=== PATIENT | male | born 1995 | race Caucasian/White ===

== ENCOUNTER 2022-10-19 22:36 | Emergency (ER) | payer SELFPAY ==
[~2022-10-19] VITALS: Ht 177.8 cm; Wt 77.1 kg
[~2022-10-19 22:36] MED LIST: ACHD5005 PO; AGM875T PO; ALBU17AE3 IH; ALBUTEROL; AMOX500C2 PO; AZTH250C PO; CEFALEXIN; CIPRODEX; CLN.1T; CODE118S2; CONCERTA; CONSERTA; CPH250CIP; DEXT10TA9; DOXY-13 PO; DOXY100C2 PO; IBP800T PO; LISD70CA3 PO; METF-380 PO; METH4TAB PO; OMEP10CA2; ONDA4TAB8 PO; ONDAN4ODT PO; PRCD5U; PRM25T PO; PRO AIR; QUET300T; QUET50TA43 PO; TRAM50TA2 PO; VIVANCE
== END 2022-10-19 22:45 | disposition left against medical advice (07) ==
LOC: EDUNIT# 22:36 → ER 22:38
DX: R07.9 Chest pain, unspecified (principal); R42 Dizziness and giddiness; X50.1XXA Overexertion from prolonged static or awkward postures, initial encounter

== ENCOUNTER 2023-05-07 20:25 | Observation (INO) | payer SELFPAY ==
[~2023-05-07] VITALS: Ht 177.8 cm; Wt 70.5 kg
[2023-05-07 22:35] VITALS: BP 156/66
[2023-05-07] MEDS ORDERED: MELATONIN 3 MG TABLET PO PRN (23:00)
[2023-05-07] MEDS ORDERED: hydrALAZINE INJECTION 20 MG/ML VIAL IV PRN (23:00)
[2023-05-07] MEDS ORDERED: CALCIUM CARBONATE 500 MG CHEW TABLET PO PRN (23:00)
[2023-05-07] MEDS ORDERED: ONDANSETRON 4 MG ORAL DISSOLVE TABLET PO PRN (23:00)
[2023-05-07] MEDS ORDERED: ANTACID SUSPENSION 30 ML UDC PO PRN (23:00)
[2023-05-07] MEDS ORDERED: diphenhydrAMINE 25 MG TABLET PO PRN (23:00)
[2023-05-07] MEDS ORDERED: LACTULOSE SYRUP 10GM/15ML 30ML UDC PO PRN (23:00)
[2023-05-07] MEDS ORDERED: BISACODYL 10 MG SUPPOSITORY PR PRN (23:00)
[2023-05-07] MEDS ORDERED: MILK OF MAGNESIA 400 MG/5 ML 30 ML UDC PO PRN (23:00)
[2023-05-07] MEDS ORDERED: diphenhydrAMINE INJ 50 MG/ML VIAL IVP PRN (23:00)
[2023-05-07] MEDS ORDERED: ACETAMINOPHEN 325 MG TABLET PO PRN (23:00)
[2023-05-07] MEDS: NS IV 1000 ML 1,000 ML IV SCH (23:07)
[2023-05-07] MEDS: PIPERACILLIN/Tazobactam 4.5 GM in NS (IVPB) 100 ML 100 ML IV SCH (23:08)
[2023-05-07] MEDS: ENOXAPARIN 40 MG/0.4 ML SYRINGE SC SCH (23:08)
[2023-05-07] MEDS: inSUlin ASPART 1 UNIT/0.01 ML (PER UNIT) SC SCH (23:15)
[2023-05-08] VITALS (8 sets, daily range): BP systolic 108–156; BP diastolic 51–76
[2023-05-08] MEDS ORDERED: RT-ALBUTEROL SULF 2.5 MG/3 ML PRE-MIX VIAL INH PRN (02:45)
[2023-05-08 06:00] LABS: BASOPHILS % (AUTO) 0 % (0-10); EOSINOPHILS # (AUTO) 0.3 10^3/uL (0.0-0.3); EOSINOPHILS % (AUTO) 5 % (0-10); HEMATOCRIT 38 % (40-54); LYMPHOCYTES # (AUTO) 0.8 10^3/uL (1.0-4.0); LYMPHOCYTES % (AUTO) 14 % (12-44); MEAN CORPUSCULAR HEMOGLOBIN 29 pg (25-34); MEAN CORPUSCULAR HGB CONC 34 g/dL (32-36); MEAN CORPUSCULAR VOLUME 85 fL (80-99); MEAN PLATELET VOLUME 10.9 fL (9.0-12.2); MONOCYTES # (AUTO) 0.4 10^3/uL (0.0-1.0); MONOCYTES % (AUTO) 7 % (0-12); NEUTROPHILS % (AUTO) 73 % (42-75); PLATELET COUNT 172 10^3/uL (130-400); WHITE BLOOD COUNT 5.5 10^3/uL (4.3-11.0)
[2023-05-08] MEDS: PIPERACILLIN/Tazobactam 4.5 GM in NS (IVPB) 100 ML 100 ML IV SCH ×3 (06:04→22:12)
[2023-05-08] MEDS: inSUlin ASPART 1 UNIT/0.01 ML (PER UNIT) SC SCH ×4 (06:04→23:16)
[2023-05-08 06:14] LABS: ALBUMIN 3.6 GM/DL (3.2-4.5); POTASSIUM 3.8 MMOL/L (3.6-5.0)
[2023-05-08 06:15] LABS: CALCIUM 7.9 MG/DL (8.5-10.1)
[2023-05-08 06:18] LABS: BILIRUBIN,TOTAL 2.8 MG/DL (0.1-1.0)
[2023-05-08 06:20] LABS: CREATININE SERUM 0.96 MG/DL (0.60-1.30)
[2023-05-08] MEDS: HYDROmorphone INJECTION 2 MG/ML VIAL IV PRN ×5 (07:44→21:03)
[2023-05-08] MEDS: PANTOPRAZOLE INJECTION 40 MG VIAL IV SCH (08:54)
[2023-05-08] MEDS: DOCUSATE SODIUM 100 MG CAPSULE PO SCH ×2 (08:54→19:17)
[2023-05-08] MEDS: SENNOSIDES 8.6 MG TABLET PO SCH ×2 (08:55→19:17)
[2023-05-08] MEDS: NS IV 1000 ML 1,000 ML IV SCH ×2 (08:56→21:28)
--- NOTE | 2023-05-08 09:49 | Diagnostic Imaging Report ---
PROCEDURE: US Abdomen, limited. TECHNIQUE: Multiple realtime grayscale images were obtained over the abdomen in various projections. INDICATION: Diffuse abdominal pain. COMPARISON: None FINDINGS: Liver is enlarged. It measures 18.67 m in length. Hepatic parenchyma is within normal limits. No focal hepatic masses seen. Portal vein shows hepatopetal flow. No intra or extrahepatic biliary dilatation is present. The common bile duct is not dilated and measures 4 mm. There is no evidence of cholelithiasis, gallbladder wall thickening, or pericholecystic fluid. The visualized portions of the head and proximal body of the pancreas are within normal limits. The distal body and tail of the pancreas are not visualized due to overlying bowel gas. There is no ascites. The right kidney measures approximately 10.4 cm in length and has a normal appearance. The visualized portions of the IVC and aorta are normal. IMPRESSION: 1. No cholelithiasis or sonographic evidence of acute cholecystitis. 2. Hepatomegaly. Dictated by: Dictated on workstation # [id number]
[2023-05-08] MEDS: oxyCODONE IMMEDIATE RELEASE 5 MG TABLET PO PRN (09:54)
[2023-05-08] MEDS: NICOTINE 21 MG PATCH TD SCH (11:12)
--- NOTE | 2023-05-08 11:19 | History & Physical-Hospitalist ---
History of Present Illness HPI/Chief Complaint CC: Abdominal pain suspicion for gallbladder disease HPI: This is a 28yoWM clinic patient of [facility] who has a h/o pancreatitis who presented to the [facility] with abdominal pain but was suspecting gallbladder infection so IV abx was initiated and sent to [facility] for gallbladder USG and ultimately will need HIDA scan. Source: patient Exam Limitations: no limitations Date Seen 05/08/23 Time Seen by a Provider: 11:00 Attending Physician Fabrice Laguerre DO PCP Admitting Physician: Lisa Rosenberg DO Attending Physician: Lisa Rosenberg DO Referring Physician Date of Admission May 07, 2023 at 22:35 Home Medications & Allergies Home Medications Reviewed patient Home Medication Reconciliation performed by pharmacy medication reconciliations certified medical technician assistant and/or nursing. Patients Allergies have been reviewed. Allergies Allergies Coded Allergies No Known Drug Allergies (Xslulrmctg28/28/11) Uncoded Allergies NKDA ( Allergy, Mild, 11/08/08) Past Hohpszj-Poooyb-Tvjfiw Hx Patient Social History Marrital Status: single Employed/Student: unemployed Tobacco Use?: No Smoking Status: Current Everyday Smoker Smokeless type used: Chew Smokeless Tobacco Frequency: Current Everyday User Substance use?: Yes Substance type: Marijuana Substance frequency: Daily Alcohol Use?: No Pt feels they are or have been: No Immunizations Up To Date Date of Influenza Vaccine: Apr 25, 2012 Seasonal Allergies Seasonal Allergies: No Current Status Advance Directives: No Communicates: Verbally Primary Language: British Is interpretation needed?: No Implanted or Applied Medical D: None Past Medical History Pancreatitis, Hepatitis Diabetes, Non-Insulin dep Bipolar, Schizophrenia, Depression Family Medical History Cancer, Diabetes Review of Systems Constitutional: see HPI Gastrointestinal: abdominal pain, nausea, vomiting Physical Exam Physical Exam Vital Signs Vital Signs - First Documented 05/07/23 05/08/23 22:35 02:38 Temp 37.1 Pulse 78 Resp 20 B/P (MAP) 156/66 (96) Pulse Ox 98 O2 Delivery Room Air FiO2 21 Capillary Refill : Height, Weight, BMI Height: 5'10" Weight: 165lbs. oz. 74.959192mc; 22.30 BMI Method:Stated General Appearance: No Apparent Distress, Chronically ill Respiratory: Lungs Clear, Normal Breath Sounds Cardiovascular: Regular Rate, Rhythm Neurologic/Psychiatric: Alert, Oriented x3 Results Results/Procedures Labs Laboratory Tests 05/08/23 05:48 Patient resulted labs reviewed. Assessment/Plan Admission Diagnosis Assessment: Acute abdominal pain Acute pancreatitis with h/o pancreatitis Gallbladder disease Plan: IV abx Pain control HIDA USG Admission Status: Observation LISA ROSENBERG DO May 08, 2023 11:19
--- NOTE | 2023-05-08 12:15 | Diagnostic Imaging Report ---
Indication: Right lower and mid abdominal pain. Time of Exam: 11:39 AM No free air is identified. Bowel gas pattern is nonobstructed. No pathologic calcifications are seen. Impression: No acute abnormality is detected. Dictated by: Dictated on workstation # [id number]
--- NOTE | 2023-05-08 12:21 | CONSULTATION REPORT ---
DATE OF SERVICE: 05/08/2023 ATTENDING PRIMARY CARE PHYSICIAN: Fabrice Laguerre DO ADMITTING PHYSICIAN: Dr. Rosenberg. HISTORY OF PRESENT ILLNESS: The patient is a 28-year-old male who presented to the Emergency Department with nausea and vomiting. He reports that he has had this before and also reports a history of what he reports as what sounds to be exocrine pancreatic insufficiency or diabetes. We are currently unsure if he has been appropriately taking medications or treating this issue. The patient states that he developed the nausea and vomiting last night, which persisted. He also has tried some clear liquids this morning, which also did cause some nausea; however, no vomiting. An abdominal x-ray was also performed, which did not show any signs of any obstruction with a significant amount of air and stool within the colon, likely consistent with constipation; however, due to his history of marijuana usage, he may have cannabinoid hyperemesis syndrome. We will treat him conservatively with IV hydration, antinausea medications as well as PPI acid reducers. PAST MEDICAL HISTORY: Diabetes, bipolar disorder, schizophrenia, depression, history of hepatitis. ALLERGIES: No known drug allergies. MEDICATIONS: None known. SOCIAL HISTORY: Positive for chewing tobacco. Positive for daily THC. He states he does not drink alcohol. FAMILY HISTORY: Noncontributory. VITAL SIGNS: Temperature 36.9, blood pressure 120/68, respirations 16, pulse 63, pulse ox 97% on room air. REVIEW OF SYSTEMS: Well-nourished male, currently in no acute distress. He is not experiencing any shortness of breath or difficulty breathing. No chest pain, palpitations, diaphoresis. No cough or sputum production. He reports a sudden onset of persistent nausea and vomiting starting last night and persisting. He reports some mild abdominal pain; however, not significant. He reports that he also does have a history of constipation, however, reports that he did have a bowel movement recently. No red blood per rectum, no dark tarry stools. No fever, chills, no recent inadvertent weight loss. All other review of systems negative. PHYSICAL EXAMINATION: CHEST: Clear. Good breath sounds bilaterally. HEART: Regular. No murmurs. EXTREMITIES: No lower extremity edema. Negative Homans sign. HEENT: No scleral icterus. No cervical lymphadenopathy. ABDOMEN: Soft, nondistended. No hernias. SKIN: Warm, dry. LABORATORY DATA: WBC 5.5, hemoglobin 13.0, hematocrit 38, platelets [ ], BUN 11, creatinine 0.96. ASSESSMENT AND PLAN: A 28-year-old male with persistent nausea and vomiting with multiple diagnoses within the differential. This may be due to uncontrolled diabetes and the development of gastroparesis. This may also be due to a gastritis and peptic ulcer disease due to his smoking history as well as a chewing tobacco. His liver function enzymes do show a slight elevation of total bilirubin, however, his other liver function enzymes are normal. He also does have a history of hepatitis. Ultrasound of the gallbladder was negative, however, there may be a component of a biliary dyskinesia, which can be worked up as an outpatient. The patient also does smoke marijuana on a daily basis and this likely represents a cannabinoid hyperemesis syndrome and we would recommend conservative therapy with slow advancement of diet as tolerated and continuation of PPI acid riveter and antinausea medications. Job ID: [id number] DocumentID: [id number] Dictated Date: 05/08/2023 11:51:38 Steel Rule Inspector Date: 05/08/2023 12:19:00 Dictated By: ANGUS BETANCOURT MD
[2023-05-08] MEDS: ONDANSETRON INJECTION 4 MG/2 ML (SDV) IV PRN (13:59)
[2023-05-08] MEDS ORDERED: METOCLOPRAMIDE INJ 10 MG/2 ML IVP PRN (18:30)
[2023-05-08] MEDS: ENOXAPARIN 40 MG/0.4 ML SYRINGE SC SCH (22:12)
[2023-05-09] MEDS ORDERED: METOCLOPRAMIDE INJ 10 MG/2 ML IVP SCH
[2023-05-09] MEDS: HYDROmorphone INJECTION 2 MG/ML VIAL IV PRN ×2 (05:20→19:29)
[2023-05-09 05:35] LABS: BASOPHILS % (AUTO) 1 % (0-10); EOSINOPHILS # (AUTO) 0.2 10^3/uL (0.0-0.3); EOSINOPHILS % (AUTO) 5 % (0-10); HEMATOCRIT 37 % (40-54); HEMOGLOBIN 12.6 g/dL (13.3-17.7); LYMPHOCYTES # (AUTO) 1.1 10^3/uL (1.0-4.0); LYMPHOCYTES % (AUTO) 27 % (12-44); MEAN CORPUSCULAR HEMOGLOBIN 29 pg (25-34); MEAN CORPUSCULAR HGB CONC 34 g/dL (32-36); MEAN CORPUSCULAR VOLUME 86 fL (80-99); MEAN PLATELET VOLUME 10.8 fL (9.0-12.2); MONOCYTES # (AUTO) 0.4 10^3/uL (0.0-1.0); MONOCYTES % (AUTO) 10 % (0-12); NEUTROPHILS # (AUTO) 2.4 10^3/uL (1.8-7.8); NEUTROPHILS % (AUTO) 57 % (42-75); PLATELET COUNT 175 10^3/uL (130-400); WHITE BLOOD COUNT 4.2 10^3/uL (4.3-11.0)
[2023-05-09] MEDS: ONDANSETRON INJECTION 4 MG/2 ML (SDV) IV PRN ×2 (05:43→19:29)
[2023-05-09] MEDS: PIPERACILLIN/Tazobactam 4.5 GM in NS (IVPB) 100 ML 100 ML IV SCH ×3 (05:43→22:51)
[2023-05-09 05:51] LABS: ALBUMIN 3.3 GM/DL (3.2-4.5); POTASSIUM 3.9 MMOL/L (3.6-5.0)
[2023-05-09 05:52] LABS: CALCIUM 7.9 MG/DL (8.5-10.1)
[2023-05-09 05:53] LABS: TOTAL PROTEIN 5.6 GM/DL (6.4-8.2)
[2023-05-09 05:55] LABS: BILIRUBIN,TOTAL 1.4 MG/DL (0.1-1.0)
[2023-05-09 05:57] LABS: CREATININE SERUM 0.99 MG/DL (0.60-1.30)
[2023-05-09] MEDS: inSUlin ASPART 1 UNIT/0.01 ML (PER UNIT) SC SCH ×4 (06:05→22:55)
[2023-05-09] MEDS: LORazepam 0.5 MG TABLET PO PRN ×3 (06:19→16:51)
[2023-05-09] MEDS: oxyCODONE IMMEDIATE RELEASE 5 MG TABLET PO PRN ×3 (06:19→16:51)
[2023-05-09 07:43] VITALS: BP 135/82
[2023-05-09] MEDS: PANTOPRAZOLE INJECTION 40 MG VIAL IV SCH (08:50)
[2023-05-09] MEDS: DOCUSATE SODIUM 100 MG CAPSULE PO SCH ×2 (08:51→19:24)
[2023-05-09] MEDS: NICOTINE 21 MG PATCH TD SCH (08:52)
[2023-05-09] MEDS: SENNOSIDES 8.6 MG TABLET PO SCH ×2 (08:52→19:24)
[2023-05-09] MEDS: NS IV 1000 ML 1,000 ML IV SCH ×2 (08:56→21:24)
[2023-05-09] MEDS ORDERED: NICOTINE PATCH REMOVAL TP SCH (08:59)
--- NOTE | 2023-05-09 10:04 | Progress Note ---
Subjective Date Seen by a Provider: May 09, 2023 Time Seen by a Provider: 09:45 Subjective/Events-last exam Patient seen with Dr. Monson. Patient reports still having RUQ and epigastric pain as well as nausea and some vomiting. He reports that he has not been able to tolerate clear liquids yet and that they will come back up. Denies throwing up any blood. RN reports that he was vaping in the room as well as had a can of chewing tobacco last night. Objective Exam Vital Signs Date Time Temp Pulse Resp B/P (MAP) Pulse Ox O2 Delivery O2 Flow Rate FiO2 05/09/23 07:43 36.7 66 16 135/82 (99) 99 Room Air 05/08/23 23:15 36.5 63 20 126/74 (91) 97 Room Air 05/08/23 21:03 Room Air 05/08/23 20:09 36.2 66 18 123/76 (92) 99 Room Air 05/08/23 19:10 Room Air 05/08/23 15:58 36.4 60 18 118/66 (83) 99 Room Air 05/08/23 11:43 36.8 65 17 122/68 (86) 96 Room Air I & O 05/09/23 06:59 Intake Total 1482 ml Output Total 700 ml Balance 782 ml Capillary Refill : General Appearance: No Apparent Distress, WD/WN Neck: Normal Inspection, Supple Respiratory: No Accessory Muscle Use, No Respiratory Distress Gastrointestinal: normal bowel sounds, soft, tenderness (RUQ and epigastric) Extremity: Normal Inspection, Normal Range of Motion Neurologic/Psychiatric: Alert, Oriented x3 Skin: Normal Color, Warm/Dry, Other (multiple tatoos over body) Results Lab Laboratory Tests 05/08/23 11:14: Glucometer 120H 05/08/23 17:05: Glucometer 123H 05/08/23 23:13: Glucometer 134H 05/09/23 05:30: White Blood Count 4.2L, Red Blood Count 4.30, Hemoglobin 12.6L, Hematocrit 37L, Mean Corpuscular Volume 86, Mean Corpuscular Hemoglobin 29, Mean Corpuscular Hemoglobin Concent 34, Red Cell Distribution Width 12.7, Platelet Count 175, Mean Platelet Volume 10.8, Immature Granulocyte % (Auto) 0, Neutrophils (%) (Auto) 57, Lymphocytes (%) (Auto) 27, Monocytes (%) (Auto) 10, Eosinophils (%) (Auto) 5, Basophils (%) (Auto) 1, Neutrophils # (Auto) 2.4, Lymphocytes # (Auto) 1.1, Monocytes # (Auto) 0.4, Eosinophils # (Auto) 0.2, Basophils # (Auto) 0.0, Immature Granulocyte # (Auto) 0.0, Sodium Level 138, Potassium Level 3.9, Chloride Level 110H, Carbon Dioxide Level 22, Anion Gap 6, Blood Urea Nitrogen 9, Creatinine 0.99, Estimat Glomerular Filtration Rate 105, BUN/Creatinine Ratio 9, Glucose Level 120H, Calcium Level 7.9L, Corrected Calcium 8.5, Total Bilirubin 1.4H, Aspartate Amino Transf (AST/SGOT) 19, Alanine Aminotransferase (ALT/SGPT) 16, Alkaline Phosphatase 55, Total Protein 5.6L, Albumin 3.3, Lipase 51 Assessment/Plan Assessment/Plan Assess & Plan/Chief Complaint A 28-year-old male with persistent nausea and vomiting, RUQ and epigastric pain Multiple differential diagnoses: may be due to uncontrolled diabetes, development of gastroparesis, may also be due to a gastritis and peptic ulcer disease, may be a component of a biliary dyskinesia, which can be worked up as an outpatient, possibly cannabinoid hyperemesis syndrome VSS Total bilirubin down to 1.4 Continue with IV fluids and abx Antinausea meds as well as pain meds as needed PPI Continue with Clear liquid diet VERÓNICA LIRA APRN May 09, 2023 10:04
--- NOTE | 2023-05-09 11:02 | Progress Note ---
RADHA EUCEDA MD,RESIDENT 05/09/23 1102: Subjective HPI/CC On Admission CC: Abdominal pain suspicion for gallbladder disease HPI: This is a 28yoWM clinic patient of [facility] who has a h/o pancreatitis who presented to the [facility] ER with abdominal pain but was suspecting gallbladder infection so IV abx was initiated and sent to [facility] for gallbladder USG and ultimately will need HIDA scan. Subjective/Events-last exam Pt laying in bed with c/o abdominal pain. He reports tolerating liquid diet. He was found to be vaping in his room, the rooming house keeper was notified and he was counseled against vaping and informed that vaping is not prohibited within the hospital and given the option to leave AMA if he continues to vape. Will DC n icotine patch in light of this. Pt reported understanding of conversation. Objective Exam Vital Signs Vital Signs Date Time Temp Pulse Resp B/P (MAP) Pulse Ox O2 Delivery O2 Flow Rate FiO2 05/09/23 08:00 Room Air 05/09/23 07:43 36.7 66 16 135/82 (99) 99 05/08/23 02:38 21 Capillary Refill : General Appearance: No Apparent Distress Respiratory: Lungs Clear, Normal Breath Sounds, No Accessory Muscle Use, No Respiratory Distress Cardiovascular: Regular Rate, Rhythm Gastrointestinal: Soft, Tenderness (diffuse) Neurologic/Psychiatric: Alert, Oriented x3, No Motor/Sensory Deficits Skin: Warm/Dry Lymphatic: No Adenopathy Results/Procedures Lab Laboratory Tests 05/09/23 05:30 Patient resulted labs reviewed. Assessment/Plan Assessment and Plan Assess & Plan/Chief Complaint Acute abdominal pain Acute pancreatitis with h/o pancreatitis Gallbladder disease Plan: IV abx - Zosyn Pain control HIDA scan scheduled for 05/10 USG - negative for GB disease General surgery consult Daily CMP - Tbili 2.4 -->1.4 Pt found vaping nicotine in room, will DC nicotine patch; rooming house keeper notified JAN GLASS DO 05/09/23 1515: Subjective HPI/CC On Admission Date Seen by Provider: May 09, 2023 Time Seen by Provider: 09:00 Subjective/Events-last exam Patient about the same Pain is still an issue We will have him ambulate today Was found vaping in his room Objective Exam General Appearance: No Apparent Distress, WD/WN, Chronically ill Respiratory: Lungs Clear, Normal Breath Sounds Cardiovascular: Regular Rate, Rhythm Neurologic/Psychiatric: Alert, Oriented x3 Assessment/Plan Assessment and Plan Assess & Plan/Chief Complaint HIDA scan tomorrow RADHA EUCEDA MD,RESIDENT May 09, 2023 11:02 JAN GLASS DO May 09, 2023 15:15
[2023-05-09 15:28] VITALS: BP 139/82
[2023-05-09] MEDS: ENOXAPARIN 40 MG/0.4 ML SYRINGE SC SCH (22:55)
[2023-05-09 23:23] VITALS: BP 135/47
[2023-05-10] MEDS: oxyCODONE IMMEDIATE RELEASE 5 MG TABLET PO PRN ×2 (05:25→09:44)
[2023-05-10] MEDS: inSUlin ASPART 1 UNIT/0.01 ML (PER UNIT) SC SCH (05:26)
[2023-05-10] MEDS: PIPERACILLIN/Tazobactam 4.5 GM in NS (IVPB) 100 ML 100 ML IV SCH (05:59)
[2023-05-10 06:17] LABS: BASOPHILS % (AUTO) 1 % (0-10); EOSINOPHILS # (AUTO) 0.1 10^3/uL (0.0-0.3); EOSINOPHILS % (AUTO) 3 % (0-10); HEMATOCRIT 38 % (40-54); LYMPHOCYTES # (AUTO) 1.2 10^3/uL (1.0-4.0); LYMPHOCYTES % (AUTO) 26 % (12-44); MEAN CORPUSCULAR HEMOGLOBIN 29 pg (25-34); MEAN CORPUSCULAR HGB CONC 34 g/dL (32-36); MEAN CORPUSCULAR VOLUME 86 fL (80-99); MEAN PLATELET VOLUME 11.2 fL (9.0-12.2); MONOCYTES # (AUTO) 0.5 10^3/uL (0.0-1.0); MONOCYTES % (AUTO) 11 % (0-12); NEUTROPHILS # (AUTO) 2.8 10^3/uL (1.8-7.8); NEUTROPHILS % (AUTO) 60 % (42-75); PLATELET COUNT 177 10^3/uL (130-400); WHITE BLOOD COUNT 4.7 10^3/uL (4.3-11.0)
[2023-05-10 06:37] LABS: ALBUMIN 3.5 GM/DL (3.2-4.5); POTASSIUM 3.8 MMOL/L (3.6-5.0)
[2023-05-10 06:38] LABS: CALCIUM 7.8 MG/DL (8.5-10.1)
[2023-05-10 06:39] LABS: TOTAL PROTEIN 5.8 GM/DL (6.4-8.2)
[2023-05-10 06:41] LABS: BILIRUBIN,TOTAL 1.2 MG/DL (0.1-1.0)
[2023-05-10 06:43] LABS: CREATININE SERUM 1.05 MG/DL (0.60-1.30)
[2023-05-10 07:46] VITALS: BP 127/74
[2023-05-10] MEDS ORDERED: LOPERAMIDE 2 MG CAPSULE PO PRN (08:00)
[2023-05-10] MEDS: SENNOSIDES 8.6 MG TABLET PO SCH (08:36)
[2023-05-10] MEDS: DOCUSATE SODIUM 100 MG CAPSULE PO SCH (08:36)
[2023-05-10] MEDS: PANTOPRAZOLE INJECTION 40 MG VIAL IV SCH (08:36)
[2023-05-10] MEDS: NS IV 1000 ML 1,000 ML IV SCH (08:40)
[2023-05-10] MEDS ORDERED: GLIP5TAB23 PO (10:05)
[2023-05-10] MEDS ORDERED: GABA800T PO (10:06)
[2023-05-10] MEDS ORDERED: IBUP-2473 PO ×2 (10:07→11:33)
[2023-05-10] MEDS ORDERED: MULT-851 PO (10:07)
[2023-05-10] MEDS ORDERED: ACET500P24 PO ×2 (10:07→11:33)
[2023-05-10] MEDS ORDERED: inSUlin ASPART 1 UNIT/0.01 ML (PER UNIT) SC SCH (11:00)
[2023-05-10] MEDS ORDERED: ONDA4TAB11 PO (11:33)
[2023-05-10 11:46] VITALS: BP 127/74
--- NOTE | 2023-05-10 11:49 | Discharge Summary ---
Discharge [facility] Reconcile Patient Problems Problems Reviewed?: Yes Discharge Medications New, Converted or Re-Newed RX: Transmitted to Pharmacy New Medications: Ondansetron (Ondansetron Odt) 4 Mg Tab.rapdis 4 MG PO Q6H PRN for NAUSEA/VOMITING-1ST LINE for 7 Days, #14 TAB Continued Medications: Acetaminophen (Tylenol Extra Strength) 500 Mg Powd.pack 500 MG PO Q8H PRN for PAIN-MILD (1-4) for 14 Days, #42 EACH (This prescription has been renewed) Gabapentin (Neurontin) 800 Mg Tablet 800 MG PO BID, TAB UNABLE TO VERIFY WITH THE PHARMACY Glipizide (Glipizide) 5 Mg Tablet 2.5 MG PO DAILY, TAB TAKES 1/2 OF (5MG) TAB Ibuprofen (Ibuprofen) 200 Mg Tablet 200 MG PO Q8H PRN for PAIN-MILD (1-4) for 14 Days, #42 TAB (This prescription has been renewed) Multivits-Minerals/FA/Lycopene (One Daily For Men Tablet) 0.4 Mg-600 Mcg Tablet 1 EACH PO DAILY, TAB Patient Instructions Goal/Follow Up Appt: 1 week with PCP Patient Instructions: Eat easy to digest foods low in fat WONG MCKEON MD May 10, 2023 11:49
--- NOTE | 2023-05-10 11:50 | Discharge Summary ---
Diagnosis/Chief Complaint Date of Admission May 07, 2023 at 22:35 Date of Discharge May 10, 2023 at 11:47 Admission Diagnosis Admission Diagnosis RUQ abdominal pain Acute Pancreatitis N/V Discharge Diagnosis See Above Discharge Summary-Simple/Stand Consultations Dr Monson: General Surgery Discharge Physical Examination Allergies: Coded Allergies: No Known Drug Allergies (Unverified , 06/17/11) Uncoded Allergies: NKDA (Allergy, Mild, 11/08/08) Vitals & I&Os Vital Sign - Last 12Hours Date Time Temp Pulse Resp B/P (MAP) Pulse Ox O2 Delivery O2 Flow Rate FiO2 05/10/23 11:46 36.6 72 16 127/74 96 Room Air 05/08/23 02:38 21 Intake and Output 05/09/23 23:59 Intake Total 1200 ml Output Total 500 ml Balance 700 ml General Appearance: Alert, Oriented X3, No Acute Distress Respiratory: Clear to Auscultation, Normal Air Movement Cardiovascular: Regular Rate, No Murmurs Abdominal: Normal Bowel Sounds, Soft, Other (mild ttp RUQ, no rebound or guarding) Extremities: No Edema, No Tenderness/Swelling Neuro: Normal Speech Hospital Course See final discharge diagnosis. Discussion & Recommendations 28 yo M that presented with RUQ abdominal pain that bent him over at work. States that this pain has been coming and going for a couple months now. Patient was made NPO and started on IVFs. Pain improved and plan was to have HIDA scan that was D/abraham by Dr Monson since improvement and can have further workup as outpatient. On day of d/c pain has resolved and patient is tolerating PO diet. Discharge Condition at discharge Stable Instructions to patient/family Please see electronic discharge instructions given to patient. Discharge Medications Reviewed and agree with Discharge Medication list on patient's Discharge Instruction sheet WONG MCKEON MD May 10, 2023 11:49
== END 2023-05-10 11:47 | disposition home or self-care (01) ==
LOC: 4TH 22:35
PROVIDERS: ADMIT Internal Medicine; ATTEND Family Medicine
DX: K85.90 Acute pancreatitis without necrosis or infection, unspecified (principal); K82.9 Disease of gallbladder, unspecified; F17.220 Nicotine dependence, chewing tobacco, uncomplicated
CPT/HCPCS: 74019; 76705; 80053 ×3; 82947 ×4; 83690 ×3; 85025 ×3; 96366; 96372 ×3; 96374; 96375; 96376 ×3; G0378; G0379; 36415